=== PATIENT | female | born 1975 | race Hispanic/Latino ===

== ENCOUNTER 2019-05-26 09:53 | Outpatient (CLI) | payer BC ==
--- NOTE | 2019-05-26 11:59 | MMO ---
Bilateral MAMMO Bilat Screen [facility]. CLINICAL HISTORY: Patient is 44 years old and is seen for screening. The patient has no family history of breast cancer. The patient has no personal history of cancer. VIEWS: The views performed were: bilateral craniocaudal with tomosynthesis and bilateral mediolateral oblique with tomosynthesis. FILMS COMPARED: The present examination has been compared to prior imaging studies performed at [facility] on 02/05/2016, 02/11/2017, 02/24/2017 and 05/20/2018. This study has been interpreted with the assistance of computer-aided detection. MAMMOGRAM FINDINGS: There are scattered fibroglandular densities. There is a stable round mass seen in the right breast. There are no suspicious masses, calcifications or areas of architectural distortion. There are no suspicious masses, suspicious calcifications, or new areas of architectural distortion. IMPRESSION: THERE IS NO MAMMOGRAPHIC EVIDENCE OF MALIGNANCY. A ROUTINE FOLLOW-UP MAMMOGRAM IN 1 YEAR IS RECOMMENDED. THE RESULTS OF THIS EXAM WERE SENT TO THE PATIENT. ACR BI-RADS Category 2 - Benign finding MAMMOGRAPHY NOTE: 1. A negative mammogram report should not delay a biopsy if a dominant of clinically suspicious mass is present. 2. Approximately 10% to 15% of breast cancers are not detected by mammography. 3. Adenosis and dense breasts may obscure an underlying neoplasm. Reported by: DEDRA DEL ANGEL MD Electonically Signed: [id number]
== END 2019-05-26 09:54 | disposition home or self-care (01) ==
LOC: BICMAMMO 09:53
DX: Z12.31 Encounter for screening mammogram for malignant neoplasm of breast (principal)
CPT/HCPCS: 77063; 77067

== ENCOUNTER 2020-06-14 10:33 | Outpatient (CLI) | payer OTHER ==
--- NOTE | 2020-06-14 12:10 | MMO ---
Bilateral MAMMO Bilat Screen [facility]. CLINICAL HISTORY: Patient is 45 years old and is seen for screening. The patient has no family history of breast cancer. The patient has no personal history of cancer. VIEWS: The views performed were: bilateral craniocaudal with tomosynthesis and bilateral mediolateral oblique with tomosynthesis. FILMS COMPARED: The present examination has been compared to prior imaging studies performed at [facility] on 02/11/2017, 02/24/2017, 05/20/2018 and 05/26/2019. This study has been interpreted with the assistance of computer-aided detection. MAMMOGRAM FINDINGS: There are scattered fibroglandular densities. There are no suspicious masses, suspicious calcifications, or new areas of architectural distortion. IMPRESSION: THERE IS NO MAMMOGRAPHIC EVIDENCE OF MALIGNANCY. A ROUTINE FOLLOW-UP MAMMOGRAM IN 1 YEAR IS RECOMMENDED. THE RESULTS OF THIS EXAM WERE SENT TO THE PATIENT. ACR BI-RADS Category 1 - Negative MAMMOGRAPHY NOTE: 1. A negative mammogram report should not delay a biopsy if a dominant of clinically suspicious mass is present. 2. Approximately 10% to 15% of breast cancers are not detected by mammography. 3. Adenosis and dense breasts may obscure an underlying neoplasm. Reported by: BRICE DILLON MD Electonically Signed: [id number]
== END 2020-06-14 10:34 | disposition home or self-care (01) ==
LOC: BICMAMMO 10:33
PROVIDERS: ATTEND Family Medicine
DX: Z12.31 Encounter for screening mammogram for malignant neoplasm of breast (principal)
CPT/HCPCS: 77063; 77067

== ENCOUNTER 2021-06-13 08:42 | Outpatient (CLI) | payer BC | END 2021-06-13 08:43 | disposition home or self-care (01) | LOC: BICMAMMO 08:42 | PROVIDERS: ATTEND Family Medicine | DX: Z12.31 Encounter for screening mammogram for malignant neoplasm of breast (principal) | CPT/HCPCS: 77063; 77067 ==

== ENCOUNTER 2021-07-02 07:41 | Outpatient (CLI) | payer BC | END 2021-07-02 07:42 | disposition home or self-care (01) | LOC: ULT 07:41 | PROVIDERS: ATTEND Family Medicine | DX: R10.32 Left lower quadrant pain (principal); K76.0 Fatty (change of) liver, not elsewhere classified | CPT/HCPCS: 76700 ==

== ENCOUNTER 2022-06-18 11:33 | Outpatient (CLI) | payer BC | END 2022-06-18 11:34 | disposition home or self-care (01) | LOC: BICMAMMO 11:33 | PROVIDERS: ATTEND Family Medicine | DX: Z12.31 Encounter for screening mammogram for malignant neoplasm of breast (principal) | CPT/HCPCS: 77063; 77067 ==

== ENCOUNTER 2022-06-24 08:59 | Outpatient (CLI) | payer BC | END 2022-06-24 09:00 | disposition home or self-care (01) | LOC: DTY/OP 08:59 | PROVIDERS: ATTEND Family Medicine | DX: R63.5 Abnormal weight gain (principal) | CPT/HCPCS: 97802 ==

== ENCOUNTER 2023-07-15 15:43 | Outpatient (CLI) | payer BC | END 2023-07-15 15:44 | disposition home or self-care (01) | LOC: BICMAMMO 15:43 | PROVIDERS: ATTEND Nurse Practitioner Family | DX: Z12.31 Encounter for screening mammogram for malignant neoplasm of breast (principal) | CPT/HCPCS: 77063; 77067 ==

== ENCOUNTER 2024-01-24 13:42 | Outpatient (CLI) | payer BC | END 2024-01-24 13:43 | disposition home or self-care (01) | LOC: DTY/OP 13:42 | PROVIDERS: ATTEND Specialist | DX: E66.01 Morbid (severe) obesity due to excess calories (principal) | CPT/HCPCS: 97802 ==

== ENCOUNTER 2024-02-14 16:00 | Inpatient (IN) | payer BC ==
[2024-02-28] MEDS ORDERED: Ketorolac Tromethamine 30 MG (1 mL) VIAL ONE (11:51)
[2024-02-28] MEDS ORDERED: Sodium Chloride 0.9% 100 ML ONE (11:51)
[2024-02-28] MEDS ORDERED: Acetaminophen 500 MG TAB ONE (11:51)
[2024-02-28] MEDS ORDERED: CEFAZOLIN 2 GM VIAL ONE (11:51)
[2024-02-28] MEDS ORDERED: Heparin 5,000 UNITS/ML VIAL ONE (11:51)
[2024-02-28] MEDS ORDERED: fentaNYL 50 mcg/mL 1 mL Vial ONE (12:10)
[2024-02-28] MEDS ORDERED: EPINEPHrine 1 MG/ML VIAL ONE ×2 (12:10→13:11)
[2024-02-28] MEDS ORDERED: Midazolam HCl 2 mg/2 ml Vial ONE (12:10)
[2024-02-28] MEDS ORDERED: Bupivacaine 0.25% HCL 30 ML VIAL ONE ×2 (12:11→13:11)
[2024-02-28] MEDS ORDERED: Scopolamine 1 mg/72 hour Patch ONE (12:59)
[2024-02-28] MEDS ORDERED: Lidocaine 1% (PF) 30 ML VIAL ONE (13:13)
[2024-02-28] MEDS ORDERED: fentaNYL PF 100 MCG/2 ML SYRINGE ONE (13:50)
[2024-02-28] MEDS ORDERED: PROPOFOL 20 ML ONE ×2 (13:50→16:37)
[2024-02-28] MEDS ORDERED: Ondansetron PF 4 MG/2 ML Vial ONE (13:51)
[2024-02-28] MEDS ORDERED: Lidocaine 1% PF 5 ML VIAL ONE (13:51)
[2024-02-28] MEDS ORDERED: Rocuronium Bromide 10 MG/ML (10ML VIAL) ONE (13:51)
[2024-02-28] MEDS ORDERED: Dexamethasone 20 MG/5 ML VIAL ONE (13:51)
[2024-02-28] MEDS ORDERED: diphenhydrAMINE 50 MG/ML VIAL ONE (13:51)
[2024-02-28] MEDS ORDERED: Indocyanine Green 25 MG/10 ML VIAL ONE (14:24)
[2024-02-28] MEDS ORDERED: PHENYLEPHRINE-NS 100 MCG/ML 10 ML SYRINGE ONE (14:36)
[2024-02-28] MEDS ORDERED: SUGAMMADEX SODIUM 200 MG/2 ML VIAL ONE (16:57)
[2024-02-28] MEDS ORDERED: Dexmedetomidine 200 MCG/2 ML VIAL ONE (17:01)
[2024-02-28] MEDS ORDERED: diphenhydrAMINE 50 MG/ML VIAL IVP PRN (17:43)
[2024-02-28] MEDS ORDERED: Glucagon 1 MG/ML KIT IM PRN (17:43)
[2024-02-28] MEDS ORDERED: Ipratropium/Albuterol 3 ML NEB NEB PRN (17:43)
[2024-02-28] MEDS ORDERED: Dextrose 5% in Water 1,000 ML IV PRN (17:43)
[2024-02-28] MEDS ORDERED: Dextrose 50% Abboject 50 ML SYRINGE SLOW IVP PRN (17:43)
[2024-02-28] MEDS ORDERED: Morphine 2 MG/ML VIAL SLOW IVP PRN (17:43)
[2024-02-28] MEDS ORDERED: Promethazine HCl 25 MG/ML VIAL IM PRN (17:43)
[2024-02-28] MEDS ORDERED: hydrALAZINE 20 MG/ML VIAL SLOW IVP PRN (17:43)
[2024-02-28] MEDS ORDERED: Morphine 4 MG/ML VIAL SLOW IVP PRN (17:51)
[2024-02-28 19:44] VITALS: TEMP 98.8
[2024-02-28] MEDS: Ketorolac Tromethamine 30 MG (1 mL) VIAL IVP SCH (20:05)
[2024-02-28] MEDS: Ondansetron PF 4 MG/2 ML Vial IVP PRN (20:07)
[2024-02-28 20:30] VITALS: BMI 38.9
[2024-02-28] MEDS: Morphine 4 MG/ML VIAL SLOW IVP PRN (21:22)
[2024-02-28] MEDS: D5 1/2 NS w/20 mEq KCL 1,000 ML IV SCH (21:23)
[2024-02-29] MEDS: Hydrocodone-Acetamin 15 ML UDCUP PO PRN (00:47)
[2024-02-29 05:34] LABS: #Basophils Less than 0.03 10x3/uL (0.0-0.2); #Eosinphils Less than 0.03 10x3/uL (0.0-0.7); %Basophils 0.3 % (0.0-1.0); %Lymphocytes 8.2 % (21.0-51.0); %Monocytes 6.2 % (0.0-10.0); Hematocrit 39.7 % (36.0-47.0); Hemoglobin 12.9 g/dL (12.0-16.0); Mean Corpuscular HGB CONC 32.5 g/dL (32.0-36.0); Mean Corpuscular Hemoglobin 29.3 pg (27.0-31.0); Mean Platelet Volume 10.1 fL (7.4-10.4); Platelet Count 251 10x3/uL (130-400); RBC Distribution Width 13.3 % (11.5-14.5); Red Blood Cell (RBC) Count 4.41 mill/uL (4.20-5.40)
[2024-02-29] MEDS: Levothyroxine Sodium 100 MCG TAB PO SCH (05:57)
[2024-02-29 06:13] LABS: Anion Gap 12 mmol/L (10-20); BUN (Urea Nitrogen) 11 mg/dL (7.0-18.7); Calc. Creatinine Clearance 145 mL/min (70-130); Carbon Dioxide 25 mmol/L (22-29); Chloride 106 mmol/L (98-107); Estimated GFR 107; Glucose 144 mg/dL (70-105); Potassium 3.9 mmol/L (3.5-5.1); Sodium 139 mmol/L (136-145)
[2024-02-29] MEDS ORDERED: Pantoprazole DR 40 MG TAB PO SCH (09:00)
[2024-02-29] MEDS: Empagliflozin 25 MG TAB PO SCH (09:39)
[2024-02-29] MEDS: Atorvastatin Calcium 10 MG TAB PO SCH (09:39)
[2024-02-29] MEDS: Enoxaparin 40 MG (0.4 mL) SYRINGE SC SCH (09:39)
[2024-02-29] MEDS: Pantoprazole 40 MG VIAL IVP SCH (09:39)
[2024-02-29] MEDS: Ezetimibe 10 MG TAB PO SCH (09:40)
[2024-02-29 11:42] VITALS: BP 114/72
== END 2024-02-29 13:52 | disposition home or self-care (01) | DRG 621 ==
LOC: SURG A 02-28 10:19 → EDSTATUS 02-28 16:00 → SURG A 02-28 18:46
PROVIDERS: ADMIT Specialist; ATTEND Specialist
PROC: 0DB64Z3 Excision of Stomach, Percutaneous Endoscopic Approach, Vertical (ICD-10-PCS; principal; 2024-02-28)
PROC: 8E0W4CZ Robotic Assisted Procedure of Trunk Region, Percutaneous Endoscopic Approach (ICD-10-PCS; 2024-02-28)
PROC: 3E033XZ Introduction of Vasopressor into Peripheral Vein, Percutaneous Approach (ICD-10-PCS; 2024-02-28)
DX: E66.01 Morbid (severe) obesity due to excess calories (principal); K21.9 Gastro-esophageal reflux disease without esophagitis; I10 Essential (primary) hypertension; D64.9 Anemia, unspecified; E78.00 Pure hypercholesterolemia, unspecified; E03.9 Hypothyroidism, unspecified; M19.90 Unspecified osteoarthritis, unspecified site; E11.9 Type 2 diabetes mellitus without complications; N95.9 Unspecified menopausal and perimenopausal disorder; Z79.890 Hormone replacement therapy; Z79.899 Other long term (current) drug therapy; Z98.891 History of uterine scar from previous surgery; Z90.49 Acquired absence of other specified parts of digestive tract; Z88.8 Allergy status to other drugs, medicaments and biological substances; Z68.38 Body mass index [BMI] 38.0-38.9, adult
CPT/HCPCS: 36416; 80048; 85025; 94760; C1889; C9113; J0171; J0665; J1100; J1200; J1644; J1650; J1885; J2001; J2250; J2270; J2405; J2704; J3010; J3480; J3490